=== PATIENT | female | born 1950 | race Caucasian/White ===

== ENCOUNTER → 2016-05-15 | Outpatient (CLI) | payer OTHER, MEDICAID ==
--- NOTE | 2016-05-15 19:26 | DX ---
Bilateral Feet - 6 Views Total dated May 15, 2016 Indication: Bilateral pain. No trauma. Technique: Bilateral AP, oblique and lateral views. Findings: Left: Minimal hallux valgus deformity and mild osteoarthritis of the first metatarsophalangeal joint. The remainder of the joint spaces are well preserved. No erosions. Small plantar spur and small enth esophyte emanating off the posterior body of the calcaneus. Right: Mild hallux valgus deformity and mild to moderate osteoarthritis of the first metatarsophalang eal joint is evidenced by joint space narrowing, subchondral sclerosis and cyst. Minimal periarticula r demineralization. No erosions. No fracture or bone lesion. Minimal vascular calcification. Plantar spur and moderate enthesophyte off the posterior body of the calcaneus at the insertion of the Achill es tendon. Impression: 1. Minimal left hallux valgus deformity and osteoarthritis of the first metatarsophalangeal joint. 2. Mild right hallux valgus deformity and mild to moderate osteoarthritis of the first metatarsophala ngeal joint. 3. Bilateral plantar spurs. 4. No fracture or bone lesion.
--- NOTE | 2016-05-15 19:56 | DX ---
Bilateral Ankles - 6 Views Total dated May 15, 2016 Indication: Bilateral pain. No trauma. Technique: Bilateral AP, mortise, and lateral views. Comparison: None. Findings: Right: The bones are anatomically aligned and normally mineralized. Minimal ankle joint osteoarthriti s is evidenced by joint space narrowing along the medial lateral margin with small marginal osteophyt es along the anterior lip of the distal tibia and medial lateral jointline. Small benign spur emanate s off the medial malleolus. No fracture or osteochondral lesion. No erosions. Moderate plantar spur a nd exuberant enthesophyte emanate off the posterior body of the calcaneus at the insertion of the Ach illes tendon. Benign arterial calcification. Left: Minimal osteoarthritis is evidenced by minimal joint space narrowing and osteophytes emanating off the lateral joint line. Small benign spur emanates off the medial malleolus. No erosion or osteoc hondral lesion. Plantar spur and small enthesophyte emanate off the posterior body of the calcaneus a t the insertion of the Achilles tendon. Arterial calcification is present. Impression: 1. Minimal bilateral ankle osteoarthritis. 2. No erosive arthropathy or bone lesion. 3. Vascular calcification is characteristic of diabetes mellitus.
== END ==
LOC: CIMAGING 14:25
PROVIDERS: ATTEND Family Medicine
DX: M77.31 Calcaneal spur, right foot (principal); M77.32 Calcaneal spur, left foot; M19.071 Primary osteoarthritis, right ankle and foot; M19.072 Primary osteoarthritis, left ankle and foot; I87.8 Other specified disorders of veins; E11.9 Type 2 diabetes mellitus without complications
CPT/HCPCS: 73610-PO; 73630-PO

== ENCOUNTER 2016-07-17 13:11 | Observation (INO) | payer OTHER, MEDICAID ==
--- NOTE | 2016-07-17 13:26 | CPEKG ---
Heart Rate: 71 RR Interval: 845 P-R Interval: 204 QRSD Interval: 92 QT Interval: 392 QTC Interval: 426 P [place]: 29 QRS [place]: -19 T Wave [place]: 43 EKG Severity - OTHERWISE NORMAL ECG - EKG Impression: SINUS RHYTHM EKG Impression: BORDERLINE LEFT AXIS DEVIATION Electronically Signed By: Jen Roblero 17-Jul-2016 15:40:20
--- NOTE | 2016-07-17 13:51 | EDPHY ---
H & P Stated Complaint: CP, DYSPNEA X1MO Time Seen by Provider: 07/17/16 13:20 HPI/ROS: CHIEF COMPLAINT: Chest pain HISTORY OF PRESENT ILLNESS: The patient is a 66 year old female with history of cardiac stents and aortic stenosis who was sent here by her PCP, Dr. Fair, for chest pain. The patient went to see Dr. Fair today for a diabetes check, but complained of ongoing chest pain. The patient reports intermittent chest pain for the past month. Her pain occurs both at rest and with exertion. Pain moves throughout the chest, but is usually localized substernally. It radiates to her right shoulder and occasionally to her back. She states the pain feels like a "gripping" sensation that lasts for 15-30 minutes. She sits down and pain usually resolves on its own. Last night she developed chest pain around 8:30 p.m.. The pain remained constant throughout the night. The patient takes Warfarin daily. No fever, chills, shortness of breath, palpitations, vomiting, diarrhea, urinary complaints, headache, lightheadedness. REVIEW OF SYSTEMS: Aside from elements discussed in the HPI, a comprehensive 10-point review of systems was reviewed and is negative. PAST MEDICAL HISTORY: DM2, Aortic stenosis, Cardiac stents, Hyperlipidemia, Cholecystectomy. SOCIAL HISTORY: Lives independently at home. Nonsmoker. No alcohol. VITAL SIGNS: Reviewed by me GENERAL: Overweight, resting comfortably in no respiratory distress. HEENT: Atraumatic. Eyes: No icterus, no injection. Mouth: moist mucous membranes. No erythema or lesions. Neck: supple with no adenopathy. LUNGS: Clear to auscultation bilaterally, no wheezes, rhonchi or rales. CARDIAC: Regular rate and rhythm, Prominent blowing systolic murmur. ABDOMEN: Soft, obese, nontender, nondistended, bowel sounds normal. BACK: No CVA tenderness. EXTREMITIES: Venostasis changes and trace pitting edema bilaterally. NEURO: Alert and oriented, grossly nonfocal. SKIN: Warm and dry, no rash. PSYCHIATRIC: Normal mentation, no agitation. Portions of this note were transcribed by a biomedical repair technician. I personally performed a history, physical exam, medical decision making, and confirmed accuracy of information the transcribed note. - Personal History Current Tetanus/Diphtheria Vaccine: Yes Current Tetanus Diphtheria and Acellular Pertussis (TDAP): Yes Tetanus Vaccine Date: close to 10 yrs - Medical/Surgical History Hx Diabetes: Yes Hx Cardiac Disease: Yes Hx Renal Disease: No Hx Cirrhosis: No Hx Alcoholism: No Hx HIV/AIDS: No Hx Splenectomy or Spleen Trauma: No Other PMH: Stent Cardiac. DM 2. Hyperlipidemia. Cholecystectomy - Social History Smoking Status: Former smoker Constitutional: Initial Vital Signs Temperature (C) 36.6 C 07/17/16 13:11 Heart Rate 76 07/17/16 13:11 Respiratory Rate 16 07/17/16 13:11 Blood Pressure 196/89 H 07/17/16 13:11 O2 Sat (%) 93 07/17/16 13:11 Allergies/Adverse Reactions: epinephrine [Epinephrine] Allergy (Severe, Verified 03/24/14 12:12) HEART RACING diphenhydramine HCl [From Benadryl] Allergy (Intermediate, Verified 03/24/14 12: 12) WORKS OPPOSITE/HYPER nalbuphine HCl [From Nubain] Allergy (Intermediate, Verified 03/24/14 12:12) WORKS OPPOSITE/ HYPER codeine [Codeine] Allergy (Mild, Verified 03/24/14 12:12) UPSET STOMACH Home Medications: Medication Instructions Recorded Atorvastatin Calcium [Lipitor 20 20 mg PO HS 01/13/13 mg (RX)] Ranitidine HCl [Ranitidine HCl 300 300 mg PO DAILY@12 01/13/13 mg] Acetaminophen [Tylenol Tablet] 650 mg PO Q6H PRN 01/14/13 Calcium Carbonate [Tums 500MG 500 mg PO Q6H PRN 01/14/13 (OTC)] LORazepam [Ativan 1 mg (RX)] 0.5 - 1 mg PO BID PRN 01/14/13 Nitroglycerin [Nitrostat 0.4 mg 0.4 mg SL PRN PRN 01/14/13 (RX)] Warfarin Sodium [Coumadin 5MG (RX)] 5 mg PO DAILY@1800 03/11/13 Lisinopril [Zestril 20 mg (*)] 20 mg PO DAILY 07/17/16 Lisinopril/Hctz 20/12.5MG 1 ea PO DAILY@12 07/17/16 [Zestoretic/Prinzide 20/12.5MG (*)] Metoprolol Tartrate [Lopressor 50 50 mg PO BID 07/17/16 mg (*)] traZODone [traZODONE 50MG (*)] 50 mg PO HS PRN 07/17/16 Medical Decision Making - Diagnostics EKG Interpretation: The 12 lead EKG was interpreted by myself. See hard copy and/or "tracemaster" electronic copy for interpretation: Sinus rhythm. No acute ischemic changes. Imaging: Xray: Chest x-ray was obtained. I viewed the images myself on the PACS system. My interpretation of the images is: No pulmonary edema, no cardiomegaly. The radiology interpretation is: Pending. I discussed the results with the patient. ED Course/Re-evaluation: Patient received 324mg Aspirin PO. Troponin is negative. INR slightly subtherapeutic. EKG with no ischemic changes 2:45 p.m.: I spoke to the hospitalist, Dr. Edmondson, who accepts the patient for admission. Patient's course also discussed with Lucero Ballesteros from Cardiology. They will follow in the hospital. Differential Diagnosis: After history and physical examination, the differential for chest pain was considered, including but not limited to, myocardial ischemia, acute coronary syndrome, unstable angina, congestive heart failure, pulmonary embolus, chest wall pain, pleural inflammation and pulmonary infectious causes. Consult/Admit Bed Type: Dr. Edmondson, U - Data Points Laboratory Results: Laboratory Results 07/17/16 13:34 07/17/16 13:34 07/17/16 07/17/16 07/17/16 13:34 13:34 13:34 WBC RBC Hgb Hct MCV MCH MCHC RDW Plt Count MPV Neut % (Auto) Lymph % (Auto) [place] % (Auto) Eos % (Auto) Baso % (Auto) Nucleat RBC Rel Count Absolute Neuts (auto) Absolute Lymphs (auto) Absolute Monos (auto) Absolute Eos (auto) Absolute Basos (auto) Absolute Nucleated RBC Immature Gran % Immature Gran # PT 21.9 SEC H SEC (12.0-15.0) INR 1.90 H (0.83-1.16) APTT 29.0 SEC SEC (23.0-38.0) Sodium 142 mEq/L mEq/L (134-144) Potassium 4.5 mEq/L mEq/L (3.5-5.2) Chloride 108 mEq/L mEq/L (97-110) Carbon Dioxide 22 mEq/l mEq/l (22-31) Anion Gap 12 mEq/L mEq/L (8-16) BUN 21 mg/dL mg/dL (7-23) Creatinine 1.0 mg/dL mg/dL (0.6-1.0) Estimated GFR 55 Glucose 145 mg/dL H mg/dL (70-100) Calcium 9.7 mg/dL mg/dL (8.5-10.4) Creatine Kinase 81 IU/L IU/L (0-156) CK-MB (CK-2) Fraction 1.34 ng/mL ng/mL (0-3.19) Troponin I TNP < 0.012 ng/mL ng/mL (0-0.034) NT-Pro-B Natriuret Pep 241 pg/mL H pg/mL (0-125) 07/17/16 13:34 WBC 9.18 10^3/uL 10^3/uL (3.80-9.50) RBC 4.73 10^6/uL 10^6/uL (4.18-5.33) Hgb 14.7 g/dL g/dL (12.6-16.3) Hct 43.7 % % (38.0-47.0) MCV 92.4 fL fL (81.5-99.8) MCH 31.1 pg pg (27.9-34.1) MCHC 33.6 g/dL g/dL (32.4-36.7) RDW 13.8 % % (11.5-15.2) Plt Count 281 10^3/uL 10^3/uL (150-400) MPV 9.4 fL fL (8.7-11.7) Neut % (Auto) 53.1 % % (39.3-74.2) Lymph % (Auto) 28.5 % % (15.0-45.0) [place] % (Auto) 8.6 % % (4.5-13.0) Eos % (Auto) 8.0 % H % (0.6-7.6) Baso % (Auto) 1.3 % % (0.3-1.7) Nucleat RBC Rel Count 0.0 % % (0.0-0.2) Absolute Neuts (auto) 4.87 10^3/uL 10^3/uL (1.70-6.50) Absolute Lymphs (auto) 2.62 10^3/uL 10^3/uL (1.00-3.00) Absolute Monos (auto) 0.79 10^3/uL 10^3/uL (0.30-0.80) Absolute Eos (auto) 0.73 10^3/uL H 10^3/uL (0.03-0.40) Absolute Basos (auto) 0.12 10^3/uL H 10^3/uL (0.02-0.10) Absolute Nucleated RBC 0.00 10^3/uL 10^3/uL (0-0.01) Immature Gran % 0.5 % % (0.0-1.1) Immature Gran # 0.05 10^3/uL 10^3/uL (0.00-0.10) PT INR APTT Sodium Potassium Chloride Carbon Dioxide Anion Gap BUN Creatinine Estimated GFR Glucose Calcium Creatine Kinase CK-MB (CK-2) Fraction Troponin I NT-Pro-B Natriuret Pep Medications Given: Discontinued Medications Aspirin (Aspirin) 324 mg PO EDNOW ONE Stop: 07/17/16 14:00 Last Admin: 07/17/16 14:05 Dose: 324 mg Departure - Departure Disposition: [facility] Inpatient Acute Clinical Impression: Chest pain Qualifiers: Chest pain type: unspecified Qualified Code(s): R07.9 - Chest pain, unspecified Condition: Fair Report Scribed for: Jen Roblero Report Scribed by: Carley Mcadams Date of Report: 07/17/16 Time of Report: 13:59
[2016-07-17] MEDS ORDERED: ASPIRIN 81 MG CHEWABLE TAB PO ONE (13:59)
[2016-07-17 14:12] LABS: % IMMATURE GRANULYOCYTES 0.5 % (0.0-1.1); ABSOLUTE IMMATURE GRANULOCYTES 0.05 10^3/uL (0.00-0.10); ADD DIFF? NO; ADD MORPH? NO; ADD SCAN? NO; ATYPICAL LYMPHOCYTE FLAG 10 (0-99); FRAGMENT RBC FLAG 0 (0-99); HEMATOCRIT 43.7 % (38.0-47.0); HEMOGLOBIN 14.7 g/dL (12.6-16.3); LEFT SHIFT FLG 0 (0-99); LIPEMIA HEMOLYSIS FLAG 80 (0-99); MEAN CELL HEMOGLOBIN 31.1 pg (27.9-34.1); MEAN CELL HEMOGLOBIN CONCENTR. 33.6 g/dL (32.4-36.7); MEAN CELL VOLUME 92.4 fL (81.5-99.8); MEAN PLATELET VOLUME 9.4 fL (8.7-11.7); PLATELET CLUMPS FLAG 10 (0-99); PLATELET COUNT 281 10^3/uL (150-400); RED BLOOD CELL COUNT 4.73 10^6/uL (4.18-5.33); RED CELL DISTRIBUTION WIDTH 13.8 % (11.5-15.2)
[2016-07-17 14:17] LABS: ANION GAP 12 mEq/L (8-16); CALCIUM 9.7 mg/dL (8.5-10.4); CARBON DIOXIDE 22 mEq/l (22-31); CHLORIDE 108 mEq/L (97-110); GLOMERULAR FILTRATION RATE 55; GLUCOSE 145 mg/dL (70-100); INR 1.9 (0.83-1.16); POTASSIUM 4.5 mEq/L (3.5-5.2); PROTIME(PATIENT) 21.9 SEC (12.0-15.0); SODIUM 142 mEq/L (134-144)
[2016-07-17 14:30] LABS: CREATINE KINASE-MB FRACTION 1.34 ng/mL (0-3.19); TROPONIN I < 0.012 ng/mL (0-0.034)
[2016-07-17] MEDS ORDERED: ONDANSETRON 4 MG/2 ML VIAL IVP PRN (16:25)
[2016-07-17] MEDS ORDERED: ONDANSETRON DISINTEGRATING 4 MG TAB PO PRN (16:25)
[2016-07-17] MEDS ORDERED: traZODone 50 MG TAB PO PRN (16:29)
[2016-07-17] MEDS ORDERED: LORazepam 1 MG TAB PO PRN (16:29)
[2016-07-17] MEDS ORDERED: ACETAMINOPHEN 325 MG TAB PO PRN (16:29)
[2016-07-17] MEDS ORDERED: CALCIUM CARBONATE 500 MG CHEWABLE TAB PO PRN (16:29)
[2016-07-17] MEDS ORDERED: NITROGLYCERIN 0.4 MG BTL SL PRN (16:29)
[2016-07-17] MEDS ORDERED: NS 1,000 ML IV SCH (17:15)
[2016-07-17] MEDS ORDERED: IOPAMIDOL (ISOVUE 370) 100 ML BTL IV ONE (17:24)
--- NOTE | 2016-07-17 17:40 | GHP ---
[f rep st] HISTORY AND PHYSICAL DATE OF ADMISSION: 07/17/2016 CHIEF COMPLAINT: Chest pressure and shortness of breath. HISTORY OF PRESENT ILLNESS: The patient is a 66-year-old female with known CAD , with LA stent in 2012, aortic stenosis, who was seen by her PCP, Dr. Fair, for chest pain. The patient has complained of 1 month gripping discomfort in the substernal chest that can radiate to the left or right side. She has had associated right arm numbness with some of these episodes. She also reports shortness of breath at rest or with exertion. This can occur with chest discomfort or on its own. She has also noted lower extremity swelling over this time period. She denies pillow orthopnea. She always sleeps sitting up. She is followed by Dr. Funes in [facility], and she thinks she had a Lexiscan test a couple years ago. She also reports feeling nauseated for the past week. She reports mild cough with clear sputum production. No nasal congestion. No fever, chills or sweats. She is on Coumadin chronically for history of PE. During the patient's initial catheterization, there was noted to be another blockage. Per patient, they were not able to stent the second lesion, and she required multiple blood transfusions. The patient uses a cane with walking, but she has fallen in the last 3 months. Once she said she tripped over her foot. None of these had any loss of consciousness. They were mechanical. REVIEW OF SYSTEMS: I completed a 10-point review of systems, negative except as noted in HPI. PAST MEDICAL HISTORY: 1. Hypertension. 2. CAD, status post stents 07/21/2012. 3. Prediabetes. 4. Hyperlipidemia. 5. TTE in January 2013: LV function is normal. EF is 60%. Moderate aortic valve calcification AVPG is 16 mmHg. 6. Pulmonary embolism diagnosed in June 2012. 7. Aortic stenosis. 8. Hyperlipidemia. 9. Hypertension. 10. GERD. PAST SURGICAL HISTORY: 1. Parathyroidectomy. 2. Cholecystectomy. FAMILY HISTORY: Father with CAD requiring 5 coronary bypass surgeries, in his 80s. Mother of complications of eosinophilic pneumonia. Sister of COPD. Brother of a bleeding ulcer. SOCIAL HISTORY: Briefly smoked tobacco for 3 years as a teenager. Lives in [place]. She has 2 sons close by. No drugs. Normally walks with a cane. MEDICATIONS: See medication reconciliation. ALLERGIES: Codeine, Benadryl, epinephrine. PHYSICAL EXAMINATION: VITAL SIGNS: Temperature 36.7, blood pressure 196/89, heart rate 76, respirations 16, 93% on room air. GENERAL: Overweight white female, in no acute distress. HEENT: PERRLA. EOMI. Oropharynx clear, with moist mucous membranes. CV: Regular rate and rhythm. +1 pedal edema. LUNGS: Clear to auscultation bilaterally. ABDOMEN: Obese. Soft, nontender, nondistended. Positive bowel sounds. : No Wilde. No suprapubic tenderness. MUSCULOSKELETAL: Moving all 4 extremities. SKIN: Warm, dry. Mild erythema over bilateral lower extremities. NEURO: 2 through 12 intact. PSYCH: Alert and oriented x3. LABORATORY DATA: WBC 9.1, hemoglobin 14, hematocrit 43, platelets 281. INR is 1.9. PT 21. Sodium 142, potassium 4.3, chloride 108, carbon dioxide 22, glucose 145, creatinine 1.0. EKG personally reviewed by me. No ST elevation or depression. Chest x-ray personally reviewed by me. Mild blunting of costophrenic angles. No diffuse pulmonary edema. ASSESSMENT AND PLAN: 1. Angina/shortness of breath. Symptoms are occurring both with rest and exertion. Differential is cardiac, pulmonary embolism, musculoskeletal. Initial troponin and EKG are negative. There is no evidence of pneumonia or volume overload on chest x-ray. Initial troponin is negative. BNP is within normal. TSH is normal. Appreciate cardiology consultation. We will plan for echocardiogram and Lexiscan test given its noninvasive and patient had complications with last catheterization. Could consider pulmonary embolism given her INR is subtherapeutic. Can check a D-dimer, and if positive we will follow with CT. 2. Benign hypertension. Continue home medications. 3. Coronary artery disease. Continue beta micaela, statin. 4. History of pulmonary embolism. INR is subtherapeutic. Check a D-dimer. 5. Prediabetes. Check hemoglobin A1c. 6. GERD. Ranitidine. 7. Diet, cardiac. No caffeine. 8. Deep vein thrombosis prophylaxis, on Coumadin. DISPOSITION: The patient warrants observation admission given concern for angina warranting telemetry, echocardiogram and Lexiscan. /[id number]/MODL and [id number]/MODL, 07/17/16 [facility]
--- NOTE | 2016-07-17 19:44 | GCON ---
[f rep st] CONSULTATION CARDIAC CONSULTATION DATE OF CONSULTATION: 07/17/2016 CHIEF COMPLAINT: Shortness of breath and chest discomfort. HISTORY OF PRESENT ILLNESS: The patient is a 66-year-old female with a history of coronary artery d isease, status post stenting to her left anterior descending artery in July 2012, who presents with chest discomfort and shortness of breath. Her other history includes diabetes, hyperlipidemia, hyp ertension, and chronic pulmonary embolus on Coumadin. She felt well until approximately a month ago when she began having intermittent gripping chest discomfort and shortness of breath. Her symptoms do not necessarily occur together and are not exacerbated by anything in particular. She can have both symptoms at rest or with exertion. Her initial troponin is negative and BNP is within normal l imits at 241. Her EKG is nonischemic. The patient is little confused and her history is a little c omplicated because of her confusion. She is not sure why she is taking Coumadin, but I did see in p ulises notes that she has a history of chronic pulmonary embolus. She denies any history of atrial fi brillation. PAST MEDICAL HISTORY: COPD, mild aortic stenosis, diabetes, hyperlipidemia, hypertension, chronic p ulmonary embolus, coronary artery disease with prior stenting to her LAD. PAST SURGICAL HISTORY: Parathyroidectomy, cholecystectomy. SOCIAL HISTORY: She denies any history of tobacco use. She is currently accompanied by her . She does have 2 sons in their 40s. MEDICATIONS: Hydrocortisone, CoQ10, Isordil 40 mg 1/2 tab daily, Lipitor 20 mg daily, lisinopril 20 mg daily, lorazepam 1 mg b.i.d. p.r.n., metoprolol 50 mg b.i.d., ranitidine 300 mg daily, trazodone 50 mg at bedtime, Coumadin 5 mg daily. ALLERGIES: She is intolerant to codeine and Benadryl. REVIEW OF SYSTEMS: Negative except for what is stated in the H and P. PHYSICAL EXAMINATION: GENERAL: The patient appears in no acute distress. VITAL SIGNS: Blood pres sure 196/89, heart rate 76, oxygen saturation of 93% on room air. Afebrile. LABORATORY: BMP within normal limits. Troponin negative x1. BNP 241. INR 1.9. CBC within normal limits. DIAGNOSTIC STUDIES: Chest x-ray revealed COPD. EKG shows normal sinus rhythm without ischemia. ASSESSMENT: The patient is a 66-year-old female with a history of coronary artery disease, chronic obstructive pulmonary disease, and chronic pulmonary embolus who presents with chest pain and shortn ess of breath. PLAN: The patient has a history of coronary artery disease with prior stenting to her left anterior descending artery in July of 2012. She presents to the hospital complaining of 1 month of intermi ttent chest discomfort and shortness of breath. Her symptoms can be related to exertion but are als o occurring at rest. She states this is similar to what she experienced prior to having her stents placed in 2012. The patient does seem a little confused today so the majority of her history came f rom prior notes in [place] and [facility]. Her initial troponin is negative and her EKG is nonischem ic. We will plan to cycle troponins and repeat an EKG in the morning. She is currently chest pain free. If her troponins remain negative, I would plan for a Lexiscan nuclear stress test and echocar diogram tomorrow morning. She was hypertensive with a blood pressure of 196/89. This will need to be aggressively treated. Should continue her home blood pressure medications. We will make adjustm ents as necessary. Her INR is subtherapeutic at 1.9 and she does have a history of chronic pulmonary embolus. Consider further evaluation with a D-dimer and possible pulmonary CTA to rule out pulmonary embolic disease. /[id number]/MODL
[2016-07-17] MEDS ORDERED: ATORVASTATIN CALCIUM 20 MG TAB PO SCH (21:00)
[2016-07-17] MEDS ORDERED: WARFARIN SODIUM 5 MG TAB PO SCH (21:30)
[2016-07-17] MEDS: METOPROLOL TARTRATE 50 MG TAB PO SCH (22:13)
[2016-07-17] MEDS: ACETAMINOPHEN 325 MG TAB PO PRN (22:17)
[2016-07-18] MEDS: ACETAMINOPHEN 325 MG TAB PO PRN ×2 (02:16→15:53)
[2016-07-18 05:21] LABS: INR 1.88 (0.83-1.16); PROTIME(PATIENT) 21.7 SEC (12.0-15.0)
[2016-07-18 05:28] LABS: ANION GAP 10 mEq/L (8-16); CALCIUM 9.6 mg/dL (8.5-10.4); CARBON DIOXIDE 23 mEq/l (22-31); CHLORIDE 107 mEq/L (97-110); CREATININE 0.9 mg/dL (0.6-1.0); GLOMERULAR FILTRATION RATE > 60; GLUCOSE 94 mg/dL (70-100); POTASSIUM 4.2 mEq/L (3.5-5.2); SODIUM 140 mEq/L (134-144)
--- NOTE | 2016-07-18 08:12 | CPEKG ---
Heart Rate: 70 RR Interval: 857 P-R Interval: 196 QRSD Interval: 88 QT Interval: 400 QTC Interval: 432 P [place]: 30 QRS [place]: -18 T Wave [place]: 41 EKG Severity - ABNORMAL ECG - EKG Impression: SINUS RHYTHM EKG Impression: BORDERLINE LEFT AXIS DEVIATION EKG Impression: CONSIDER ANTEROSEPTAL INFARCT EKG Impression: SIMILAR FINDINGS NOTED ON PRIOR ECG Electronically Signed By: Jeremiah Mahan 18-Jul-2016 08:58:48
[2016-07-18] MEDS: METOPROLOL TARTRATE 50 MG TAB PO SCH (08:30)
[2016-07-18 08:35] VITALS: RESP 14; O2SAT 96
--- NOTE | 2016-07-18 09:51 | PDCARPN ---
Cardiology Progress Note Chief Complaint: SOB and CP Assessment/Plan: Assessment: Chuyita is a 66 y/o F with a history of CAD s/p stenting to the LAD in 07/2012 and attempt at intervention to a septal meat [employer] branch which was unsuccessful. She presented to the hospital with one month of SOB and gripping chest disomfort. Her biggest complaint is SOB at rest and with exertion. The chest discomfort can occur with exertion but not always. She also has a history of chronic PE's with subtherapeutic INR. Pulmonary CTA was negative. Plan: 1. CAD and CP- EKG is nonischemic and troponins are negative x2. Her nuc showed a possible inferolateral defect which is a low risk study. Options including angiogram versus medical therapy were discussed with her today. She will begin Norvasc 5 mg for angina and better control of her HTN. If she continues to complain of angina consider Imdur or Ranexa. Follow up with Dr. Funes on at 9:15. 2. Chronic PE's- on Coumadin. pulm CTA negative for PE. 3. HTN- poorly controlled. Add Norvasc 5mg daily. D/C HCTZ because it was causing diarrhea. 4. DM 5. HLP- continue Lipitor. 6. SOB- BNP normal and prelim echo showed preserved LV function with mild . Pulm CTA negative. 07/18/16 14:34 Subjective: 1 mild episode of SOB this morning. Reviewed/Discussed With: hospitalist Objective: Vital Signs (8 Hrs) Temp Pulse Resp BP Pulse Ox 07/18/16 08:34 36.4 C 14 96 07/18/16 08:30 68 186/86 H 07/18/16 03:48 36.4 C 59 L 18 155/82 H 92 Intake/Output (24 Hrs) 07/17/16 07/18/16 07/19/16 05:59 05:59 05:59 Intake Total 1500 Output Total 650 Balance 850 Intake: Oral (ml) 500 IV Infused (ml) 1000 Ns 1,000 ml @ 125 mls/hr 1000 IV CONT EMMETT Rx#: [id number] Output: Urine (ml) 650 Bedside Commode 650 Other: Weight 95.708 kg tele NSR Result Diagrams: 07/17/16 13:34 07/18/16 04:10 Cardiac Labs: Cardiac Lab Results (72 Hrs) 07/17/16 20:45 Troponin I < 0.012 - Physical Exam Constitutional: WDWN Cardiovascular: regular rate and rhythm, systolic murmur, other (mild edema bilaterally) Respiratory: clear to auscultate bilat, no crackles Neurologic: AAOx3 ICD10 Worksheet Patient Problems: Problems Problem Status Onset Chest pain Acute Anemia Acute CAD (coronary artery disease) Acute GI bleed Acute
[2016-07-18] MEDS ORDERED: REGADENOSON 0.4 MG/5 ML SYR IVP ONE (10:10)
--- NOTE | 2016-07-18 10:44 | ECHO ---
[id number] + + [address] : : [place] [address] : : [phone] + + Adult Echocardiographic Report + -----+ :Name: BERT VENTURAtraceecorina Date: 07/18/2016 07:23 AM : : Hospital Admission Number: [id number] Location : 213: :: 1950 Gender: Female Height: 62 in : :Age: 66 yrs Race: WH,White Weight: 211 lb : :Reason For Study: SOB/ : : BSA: 2.0 meters2 : + -----+ MMode/2D Measurements \T\ Calculations LVIDd: 4.7 cm EDV(Teich): 103.0 ml LA dimension: 3.4 cm LVOT diam: 1.9 cm LVOT area: 2.8 cm2 Normal Measurement Values: + + :LVIDd (3.5-5.7cm) IVSd (0.6-1.1cm) LVPWd (0.6-1.1cm) Aortic Root (2.0-3.7cm)Left Atrium (1.5-4.0cm): :LV Vol(d) (76-115ml) LV Vol(s) (29-48ml) Ejec Fraction (50-65%)PV Jose (0.6- 1.2m/s) TV Jose (0.4-1.0m/s) : :MV E Jose (0.8-1.0m/s)MV A Jose (0.3-1.0m/s)LVOT Jose (0.7-1.2m/s) Asc Ao Jose ( 0.9-1.8m/s) : + + Doppler Measurements \T\ Calculations MV E max jose: Ao mean PG: LV V1 mean PG: SV(LVOT): 106.1 cm/sec 15.6 mmHg 2.1 mmHg 85.5 ml MV A max jose: Ao V2 mean: LV V1 mean: 105.1 cm/sec 187.2 cm/sec 69.0 cm/sec MV E/A: 1.0 Ao V2 VTI: 69.9 cm LV V1 VTI: 30.4 cm CINTHIA(I,D): 1.2 cm2 Left Ventricle The left ventricle is normal in size. There is mild concentric left ventricular hypertrophy. Left ventricular systolic function is normal. E/a wave reversal. Ejection Fraction = 65-70%. No regional wall motion abnormalities noted. Right Ventricle The right ventricle is normal in size and function. Atria The left atrial size is normal. Right atrial size is normal. The interatrial septum is intact with no evidence for an atrial septal defect. Mitral Valve Calcified mitral apparatus. There is no evidence of mitral valve prolapse. There is no mitral valve stenosis. Tricuspid Valve Normal tricuspid valve. Aortic Valve The aortic valve opens well. Mild valvular aortic stenosis. AV max PG is 27mmHG. AV mean PG is 16mmHG. There is no aortic insufficiency. Pulmonic Valve The pulmonic valve is not well visualized. There is no pulmonic valvular regurgitation. Great Vessels The aortic root is normal size. Pericardium/Pleural There is no pericardial effusion. Conclusion A complete two-dimensional transthoracic echocardiogram was performed (2D, M-mode, Doppler and color flow Doppler). Left ventricular systolic function is normal. There is mild concentric left ventricular hypertrophy. E/a wave reversal. Ejection Fraction = 65-70%. Mild valvular aortic stenosis. AV max PG is 27mmHG. AV mean PG is 16mmHG. Final Reading Physician: Mague Mcnamara signed on 07/18/2016 10:42 AM Ordering Physician: Lucero Ballesteros Performed By: Tayla Mejía RD
--- NOTE | 2016-07-18 11:00 | CPR ---
[f rep st] NONINVASIVE CARDIAC PROCEDURE REPORT DATE OF PROCEDURE: 07/18/2016 PROCEDURE: Lexiscan nuclear stress test. INDICATION: The patient is a 66-year-old female with a history of coronary artery disease status po st stenting to her left anterior descending artery in 2012. Shortly thereafter, she had a repeat he art catheterization where septal perforated branch was unable to be intervened upon. She presented to the hospital complaining of 1 month of shortness of breath and gripping chest discomfort. DESCRIPTION OF PROCEDURE: Consent was obtained and the patient was placed on continuous telemetry. Her resting EKG revealed normal sinus rhythm with heart rate of 63, a CO interval of 204 indicating a first-degree AV block, and a QTc of 426. There are Q-waves in the anterior leads, but otherwise this is a nonischemic EKG. The patient was infused with Lexiscan and complained of "feeling terribl e." She remained in normal sinus rhythm throughout the study. She was given caffeine in the recove ry phase which resolved her symptoms. Her blood pressure at rest was 140/90, and increased to 160/9 0 during the study. PLAN: Await nuclear images. /[id number]/MODL
[2016-07-18 11:43] VITALS: BP 140/88; PULSE 65; TEMP 97.5
[2016-07-18] MEDS ORDERED: FAMOTIDINE 20 MG TAB PO SCH (12:00)
[2016-07-18] MEDS ORDERED: RANITIDINE HCL 300 MG PO SCH (12:00)
[2016-07-18] MEDS ORDERED: LISINOPRIL/HCTZ 20/12.5MG 1 EA TAB PO SCH (12:00)
[2016-07-18] MEDS ORDERED: WARFARIN SODIUM 7.5 MG TAB PO ONE (16:00)
--- NOTE | 2016-07-18 16:37 | GDS ---
[f rep st] DISCHARGE SUMMARY DISCHARGE DIAGNOSES: 1. Dyspnea on exertion, possible stable angina versus untreated hypertension. 2. Hypertension. 3. Coronary artery disease. 4. History of pulmonary embolism. 5. Aortic stenosis. HISTORY: This is a 66-year-old female with a history of coronary artery disease who presents with c hest pain and shortness of breath with exertion. HOSPITAL COURSE: The patient was admitted and Cardiology was involved. She underwent echocardiogra m which did not show any wall motion abnormalities and also stress testing which showed a possible a sasha of ischemia. It was felt that we would try to manage her medically by improving her blood press ure control prior to undergoing a heart cath. She is feeling better, and she is agreeable to this p adam. Will be discharged with close followup with her outplacement consultant. /[id number]/MODL
[2016-07-19] MEDS ORDERED: WARFARIN SODIUM 5 MG TAB PO SCH (16:00)
== END 2016-07-18 16:40 | disposition home or self-care (01) ==
LOC: F2W 16:46
PROVIDERS: ADMIT Internal Medicine; ATTEND Internal Medicine
DX: R06.09 Other forms of dyspnea (principal); I25.119 Atherosclerotic heart disease of native coronary artery with unspecified angina pectoris; I10 Essential (primary) hypertension; I70.0 Atherosclerosis of aorta; J44.9 Chronic obstructive pulmonary disease, unspecified; E11.9 Type 2 diabetes mellitus without complications; E78.5 Hyperlipidemia, unspecified; Z86.711 Personal history of pulmonary embolism; Z79.01 Long term (current) use of anticoagulants; Z95.5 Presence of coronary angioplasty implant and graft
CPT/HCPCS: 71020; 71275; 78452; 93005; 93017; 93306; A9500; G0378; J2785; Q9967